=== PATIENT | female | born 1940 | race African-American/Black ===

== ENCOUNTER → 2020-10-02 | Outpatient (CLI) | payer OTHER | LOC: HYPER 09:15 | PROVIDERS: ATTEND Emergency Medicine | DX: L89.153 Pressure ulcer of sacral region, stage 3 (principal); R60.0 Localized edema; E07.89 Other specified disorders of thyroid; E78.5 Hyperlipidemia, unspecified; D75.81 Myelofibrosis; I11.0 Hypertensive heart disease with heart failure; I50.22 Chronic systolic (congestive) heart failure; I25.10 Atherosclerotic heart disease of native coronary artery without angina pectoris; I42.9 Cardiomyopathy, unspecified; R19.7 Diarrhea, unspecified; Z85.89 Personal history of malignant neoplasm of other organs and systems; Z95.1 Presence of aortocoronary bypass graft; Z79.82 Long term (current) use of aspirin ==